=== PATIENT | female | born 1945 | race Caucasian/White ===

== ENCOUNTER 2020-05-18 18:19 | Inpatient (IN) ==
[2020-05-18] MEDS ORDERED: Ondansetron 4 mg VIAL 2 MG/ML 2 ml VIAL IV ONE (18:25)
[2020-05-18] MEDS ORDERED: HYDROmorphone 1 MG/1 ML SYRINGE IV ONE (18:25)
[2020-05-18 19:36] LABS: ABS Lymphocytes 0.6 10^3/ul (1.0-4.8); ABS Monocytes 0.9 10^3/ul (0-0.8); ABS Neutrophils 16.4 10^3/ul (1.5-7.7); Hematocrit 40 % (35-47); Hemoglobin 13.3 g/dL (12.0-16.0); Lymphocyte % 3.5 %; Mean Corpuscular HGB Conc 33 g/dL (31-36); Mean Corpuscular Hemoglobin 31 pg (27-31); Mean Corpuscular Volume 92 fL (80-97); Mean Platelet Volume 8.2 fL (7.4-10.4); Platelet Count 233 10^3/uL (150-450); Red Blood Count 4.33 10^6 /uL (3.70-4.87); Red Cell Distribution Width 14 % (10-15); White Blood Count 17.9 10^3/uL (3.5-10.8)
[2020-05-18 19:39] LABS: INR 1.08 (0.82-1.09)
[2020-05-18 19:49] LABS: Albumin 4.2 g/dL (3.2-5.2); Albumin/Globulin Ratio 1.4 (1-3); BUN/Creatinine Ratio 34.3 (8-20); Calcium 9.5 mg/dL (8.6-10.3); EGFR African American 98.4 (>60); EGFR Non-African American 81.4 (>60); Total Bilirubin 0.5 mg/dL (0.2-1.0); Total Protein 7.2 g/dL (6.4-8.9)
[2020-05-18] MEDS ORDERED: oxyCODONE/Acetamin 5/325 mg TAB PO PRN (20:11)
[2020-05-18] MEDS ORDERED: Morphine 2 MG/ML SYRINGE IV PRN (20:22)
[2020-05-18] MEDS ORDERED: HYDROmorphone 1 MG/1 ML SYRINGE ONE (21:23)
[2020-05-18] MEDS: HYDROmorphone 1 MG/1 ML SYRINGE IV SLOW PU PRN (21:26)
[2020-05-18] MEDS ORDERED: Heparin 5000 UNITS/ML 1 mL VIAL SUBCUT SCH (22:00)
[2020-05-18] MEDS: oxyCODONE/Acetamin 5/325 mg TAB PO PRN (22:22)
[2020-05-18] MEDS: NS 0.9% 1000 ml BAG 1,000 ML IV SCH (22:22)
[2020-05-18] MEDS: Ondansetron 4 mg VIAL 2 MG/ML 2 ml VIAL IV PRN (22:44)
[2020-05-19 01:41] LABS: Urine Appearance Cloudy; Urine Bilirubin Negative (Negative); Urine Blood 3+ (Negative); Urine Color Yellow; Urine Glucose Negative (Negative); Urine Ketones 1+ (Negative); Urine Nitrite Negative (Negative); Urine Protein 1+(30 mg/dL) (Negative); Urine Urobilinogen Negative (Negative)
[2020-05-19 01:45] LABS: Urine Bacteria Absent (Absent); Urine Red Blood Cell 3+(>10/hpf) (Absent); Urine White Blood Cell Trace(0-5/hpf) (Absent)
[2020-05-19] MEDS: Ondansetron 4 mg VIAL 2 MG/ML 2 ml VIAL IV PRN ×3 (05:29→23:12)
[2020-05-19 06:00] LABS: ABS Lymphocytes 0.7 10^3/ul (1.0-4.8); ABS Monocytes 0.7 10^3/ul (0-0.8); ABS Neutrophils 8.8 10^3/ul (1.5-7.7); Hematocrit 38 % (35-47); Hemoglobin 12.5 g/dL (12.0-16.0); Mean Corpuscular HGB Conc 33 g/dL (31-36); Mean Corpuscular Hemoglobin 31 pg (27-31); Mean Corpuscular Volume 93 fL (80-97); Platelet Count 218 10^3/uL (150-450); Red Blood Count 4.06 10^6 /uL (3.70-4.87); Red Cell Distribution Width 14 % (10-15); White Blood Count 10.2 10^3/uL (3.5-10.8)
[2020-05-19 06:27] LABS: BUN/Creatinine Ratio 31.4 (8-20); Calcium 8.8 mg/dL (8.6-10.3); EGFR African American 98.4 (>60); EGFR Non-African American 81.4 (>60); Potassium 4.3 mmol/L (3.5-5.0)
[2020-05-19] MEDS: HYDROmorphone 1 MG/1 ML SYRINGE IV SLOW PU PRN ×2 (08:59→23:05)
[2020-05-19] MEDS ORDERED: Prochlorperazine 5 mg/ml 2 ml VIAL (10 mg) ONE (09:39)
[2020-05-19] MEDS: NS 0.9% 1000 ml BAG 1,000 ML IV SCH ×2 (09:40→22:17)
[2020-05-19] MEDS ORDERED: Magnesium Hydroxide LIQ 30 ML UDC PO PRN (10:52)
[2020-05-19] MEDS ORDERED: Polyethylene Glycol 3350 17 GM PACKET PO PRN (10:52)
[2020-05-19] MEDS ORDERED: Senna TAB 8.6 mg TAB PO PRN (10:52)
[2020-05-19] MEDS: oxyCODONE/Acetamin 5/325 mg TAB PO PRN ×3 (12:50→21:17)
[2020-05-19] MEDS: Prochlorperazine 5 mg/ml 2 ml VIAL (10 mg) IV PRN (17:17)
[2020-05-20] MEDS ORDERED: Sodium Citrate/Citric Acid LIQ 15 ML UDC PO ONE (06:00)
[2020-05-20] MEDS ORDERED: Famotidine IV 10 MG/ML 2 ml VIAL (20 mg) IV ONE (06:00)
[2020-05-20] MEDS ORDERED: Midazolam 2 mg/2 ml VIAL 1 mg/ml 2 ml VIAL (2 mg) ONE (06:44)
[2020-05-20] MEDS ORDERED: fentaNYL 100 mcg/2 ml 50 MCG/ML VIAL ONE (06:44)
[2020-05-20] MEDS ORDERED: Ketamine HCL 50 mg/ml 10 ml VIAL (500 MG) ONE (06:44)
[2020-05-20] MEDS ORDERED: Rocuronium 50 mg VIAL 10 mg/ml 5 ml VIAL (50 mg) ONE (06:44)
[2020-05-20] MEDS ORDERED: Sterile Water for Inj 10 ML ONE ×2 (06:46→06:51)
[2020-05-20] MEDS ORDERED: Ondansetron 4 mg VIAL 2 MG/ML 2 ml VIAL ONE (06:46)
[2020-05-20] MEDS ORDERED: EPHEDrine (Pressors) 50 MG/ML VIAL ONE (06:46)
[2020-05-20] MEDS ORDERED: Phenylephrine 40 mcg/mL 10mL (400mcg) SYRINGE ONE (06:46)
[2020-05-20] MEDS ORDERED: Phenylephrine IV 10 MG/ML 1 ml VIAL ONE (06:46)
[2020-05-20] MEDS ORDERED: Propofol 10 mg/ml 100 ML BTL 100 ML ONE (06:53)
[2020-05-20] MEDS ORDERED: Bupivacaine 0.5% SDV PF 30ML VIAL ONE (06:55)
[2020-05-20] MEDS ORDERED: ceFAZolin 2 GM PREMIX 2 GM/50 ML BAG ONE (07:07)
[2020-05-20] MEDS ORDERED: ROPIVACAINE 5 MG/ML 30 ML BTL (0.5%) ONE (07:10)
[2020-05-20] MEDS ORDERED: Sodium Citrate/Citric Acid LIQ 15 ML UDC ONE (07:25)
[2020-05-20] MEDS ORDERED: Famotidine IV 10 MG/ML 2 ml VIAL (20 mg) ONE (07:25)
[2020-05-20] MEDS ORDERED: fentaNYL 100 mcg/2 ml 50 MCG/ML VIAL IV PRN (09:01)
[2020-05-20] MEDS ORDERED: Naloxone 0.4 mg VIAL 0.4 mg/ml 1 ml VIAL IV PRN (09:01)
[2020-05-20] MEDS ORDERED: Ondansetron 4 mg VIAL 2 MG/ML 2 ml VIAL IV PRN (09:01)
[2020-05-20] MEDS ORDERED: Acetaminophen IV 1 GM/100ML 1,000 MG/100 ML VIAL IVPB PRN (09:01)
[2020-05-20] MEDS ORDERED: Acetaminophen IV 1 GM/100ML 100 ML ONE (11:18)
[2020-05-20 13:36] LABS: Hematocrit 34 % (35-47); Hemoglobin 11.1 g/dL (12.0-16.0); Mean Corpuscular HGB Conc 33 g/dL (31-36); Mean Corpuscular Hemoglobin 31 pg (27-31); Mean Corpuscular Volume 93 fL (80-97); Mean Platelet Volume 8.2 fL (7.4-10.4); Platelet Count 178 10^3/uL (150-450); Red Blood Count 3.61 10^6 /uL (3.70-4.87); Red Cell Distribution Width 14 % (10-15); White Blood Count 15.4 10^3/uL (3.5-10.8)
[2020-05-20] MEDS: oxyCODONE/Acetamin 5/325 mg TAB PO PRN (13:36)
[2020-05-20] MEDS: NS 0.9% 1000 ml BAG 1,000 ML IV SCH (13:38)
[2020-05-20 13:59] LABS: BUN/Creatinine Ratio 25.3 (8-20); EGFR African American 80.9 (>60); EGFR Non-African American 66.8 (>60); Potassium 4.6 mmol/L (3.5-5.0)
[2020-05-20 14:24] LABS: ABS Lymphocytes 1.7 10^3/ul (1.0-4.8); ABS Monocytes 1.8 10^3/ul (0-0.8); ABS Neutrophils 11.8 10^3/ul (1.5-7.7); Lymphocyte % 10.9 %
[2020-05-20] MEDS ORDERED: Morphine 2 MG/ML SYRINGE IV PRN (17:39)
[2020-05-21] MEDS: NS 0.9% 1000 ml BAG 1,000 ML IV SCH (00:06)
[2020-05-21] MEDS: ceFAZolin 1 GM X 3 DOSES POST-OP Q8H (AddVan) IVPB SCH ×3 (03:00→19:29)
[2020-05-21 06:09] LABS: Hematocrit 31 % (35-47); Hemoglobin 10.3 g/dL (12.0-16.0); Mean Corpuscular HGB Conc 33 g/dL (31-36); Mean Corpuscular Hemoglobin 31 pg (27-31); Mean Corpuscular Volume 94 fL (80-97); Mean Platelet Volume 8.7 fL (7.4-10.4); Platelet Count 163 10^3/uL (150-450); Red Blood Count 3.33 10^6 /uL (3.70-4.87); Red Cell Distribution Width 14 % (10-15); White Blood Count 13.2 10^3/uL (3.5-10.8)
[2020-05-21 06:26] LABS: Calcium 8.1 mg/dL (8.6-10.3); EGFR African American 90.9 (>60); EGFR Non-African American 75.1 (>60); Potassium 4.4 mmol/L (3.5-5.0)
[2020-05-21] MEDS: oxyCODONE/Acetamin 5/325 mg TAB PO PRN ×3 (08:32→18:24)
[2020-05-21] MEDS: Polyethylene Glycol 3350 17 GM PACKET PO SCH (15:28)
[2020-05-22] MEDS: oxyCODONE/Acetamin 5/325 mg TAB PO PRN ×5 (02:19→23:27)
[2020-05-22 06:52] LABS: ABS Eosinophils 0.1 10^3/ul (0-0.6); ABS Monocytes 1.4 10^3/ul (0-0.8); ABS Neutrophils 8.5 10^3/ul (1.5-7.7); Eosinophil % 0.8 %; Hematocrit 28 % (35-47); Hemoglobin 9.4 g/dL (12.0-16.0); Lymphocyte % 8.9 %; Mean Corpuscular HGB Conc 33 g/dL (31-36); Mean Corpuscular Hemoglobin 31 pg (27-31); Mean Corpuscular Volume 93 fL (80-97); Mean Platelet Volume 8.4 fL (7.4-10.4); Platelet Count 164 10^3/uL (150-450); Red Blood Count 3.05 10^6 /uL (3.70-4.87); Red Cell Distribution Width 14 % (10-15); White Blood Count 11.1 10^3/uL (3.5-10.8)
[2020-05-22 07:03] LABS: BUN/Creatinine Ratio 19.6 (8-20); Calcium 8.5 mg/dL (8.6-10.3); EGFR African American 127.4 (>60); EGFR Non-African American 105.3 (>60); Potassium 3.8 mmol/L (3.5-5.0)
[2020-05-22] MEDS: Polyethylene Glycol 3350 17 GM PACKET PO SCH (08:39)
[2020-05-23 05:10] LABS: ABS Eosinophils 0.2 10^3/ul (0-0.6); ABS Lymphocytes 0.8 10^3/ul (1.0-4.8); ABS Monocytes 1.3 10^3/ul (0-0.8); ABS Neutrophils 6.4 10^3/ul (1.5-7.7); Eosinophil % 2.5 %; Hematocrit 27 % (35-47); Hemoglobin 8.9 g/dL (12.0-16.0); Lymphocyte % 9.3 %; Mean Corpuscular HGB Conc 33 g/dL (31-36); Mean Corpuscular Hemoglobin 31 pg (27-31); Mean Corpuscular Volume 93 fL (80-97); Mean Platelet Volume 8.1 fL (7.4-10.4); Platelet Count 183 10^3/uL (150-450); Red Blood Count 2.87 10^6 /uL (3.70-4.87); Red Cell Distribution Width 14 % (10-15); White Blood Count 8.7 10^3/uL (3.5-10.8)
[2020-05-23] MEDS: oxyCODONE/Acetamin 5/325 mg TAB PO PRN ×5 (05:15→23:53)
[2020-05-23] MEDS: Polyethylene Glycol 3350 17 GM PACKET PO SCH (08:43)
[2020-05-23] MEDS: Prochlorperazine 5 mg/ml 2 ml VIAL (10 mg) IV PRN (17:34)
[2020-05-24] MEDS: oxyCODONE/Acetamin 5/325 mg TAB PO PRN (04:12)
[2020-05-24] MEDS: Polyethylene Glycol 3350 17 GM PACKET PO SCH (08:03)
[2020-05-24] MEDS ORDERED: Iohexol 300 (CONTRAST) 10 ML SDV IV ONE (21:23)
[2020-05-24 21:41] LABS: ABS Eosinophils 0.3 10^3/ul (0-0.6); ABS Lymphocytes 1.2 10^3/ul (1.0-4.8); ABS Monocytes 1.1 10^3/ul (0-0.8); Eosinophil % 4.7 %; Hematocrit 30 % (35-47); Hemoglobin 9.8 g/dL (12.0-16.0); Lymphocyte % 18.4 %; Mean Corpuscular HGB Conc 33 g/dL (31-36); Mean Corpuscular Hemoglobin 31 pg (27-31); Mean Corpuscular Volume 93 fL (80-97); Mean Platelet Volume 7.5 fL (7.4-10.4); Platelet Count 261 10^3/uL (150-450); Red Blood Count 3.18 10^6 /uL (3.70-4.87); Red Cell Distribution Width 14 % (10-15); White Blood Count 6.7 10^3/uL (3.5-10.8)
[2020-05-25] MEDS: ceFAZolin 2 GM PREMIX 2 GM/50 ML BAG IVPB SCH ×2 (01:37→10:11)
[2020-05-25 05:28] LABS: ABS Eosinophils 0.3 10^3/ul (0-0.6); ABS Lymphocytes 1.2 10^3/ul (1.0-4.8); ABS Monocytes 1.1 10^3/ul (0-0.8); Eosinophil % 4.8 %; Hematocrit 30 % (35-47); Hemoglobin 9.9 g/dL (12.0-16.0); Lymphocyte % 17.6 %; Mean Corpuscular HGB Conc 33 g/dL (31-36); Mean Corpuscular Hemoglobin 31 pg (27-31); Mean Corpuscular Volume 93 fL (80-97); Mean Platelet Volume 8.1 fL (7.4-10.4); Platelet Count 254 10^3/uL (150-450); Red Blood Count 3.19 10^6 /uL (3.70-4.87); Red Cell Distribution Width 14 % (10-15); White Blood Count 6.7 10^3/uL (3.5-10.8)
[2020-05-25 05:48] LABS: Calcium 9.2 mg/dL (8.6-10.3); EGFR African American 115.4 (>60); EGFR Non-African American 95.4 (>60); Magnesium 1.9 mg/dL (1.9-2.7); Potassium 4.6 mmol/L (3.5-5.0)
[2020-05-25] MEDS: Polyethylene Glycol 3350 17 GM PACKET PO SCH (09:07)
[2020-05-26 06:09] LABS: ABS Eosinophils 0.2 10^3/ul (0-0.6); ABS Lymphocytes 1.2 10^3/ul (1.0-4.8); ABS Neutrophils 4.5 10^3/ul (1.5-7.7); Eosinophil % 3.3 %; Hematocrit 31 % (35-47); Hemoglobin 10.3 g/dL (12.0-16.0); Lymphocyte % 16.7 %; Mean Corpuscular HGB Conc 33 g/dL (31-36); Mean Corpuscular Hemoglobin 31 pg (27-31); Mean Corpuscular Volume 94 fL (80-97); Mean Platelet Volume 7.4 fL (7.4-10.4); Platelet Count 292 10^3/uL (150-450); Red Blood Count 3.32 10^6 /uL (3.70-4.87); Red Cell Distribution Width 14 % (10-15); White Blood Count 6.9 10^3/uL (3.5-10.8)
[2020-05-26 06:20] LABS: BUN/Creatinine Ratio 31.1 (8-20); Calcium 9.2 mg/dL (8.6-10.3); EGFR African American 115.4 (>60); EGFR Non-African American 95.4 (>60); Magnesium 1.9 mg/dL (1.9-2.7); Potassium 4.7 mmol/L (3.5-5.0)
[2020-05-26] MEDS: Polyethylene Glycol 3350 17 GM PACKET PO SCH (07:58)
[2020-05-27 07:46] VITALS: BP 124/55
[2020-05-27] MEDS: Polyethylene Glycol 3350 17 GM PACKET PO SCH (08:53)
== END 2020-05-27 11:00 | DRG 522 ==
LOC: ED 18:19 → SSU 20:08
PROVIDERS: ADMIT Internal Medicine; ATTEND Internal Medicine